=== PATIENT | female | born 1940 | race Caucasian/White ===

== ENCOUNTER 2017-08-13 09:37 | Outpatient (CLI) | payer MEDICARE, BC | END 2017-08-13 09:38 | disposition home or self-care (01) | LOC: BICMAMMO 09:37 | PROVIDERS: ATTEND Internal Medicine Hematology & Oncology | DX: Z13.820 Encounter for screening for osteoporosis (principal); M85.80 Other specified disorders of bone density and structure, unspecified site; Z85.42 Personal history of malignant neoplasm of other parts of uterus; Z85.3 Personal history of malignant neoplasm of breast | CPT/HCPCS: 77066; 77080; G0279 ==

== ENCOUNTER 2018-05-29 12:11 | Emergency (ER) | payer MEDICARE, BC ==
[2018-05-29] MEDS ORDERED: Ketorolac Tromethamine 30 MG/ML VIAL ONE (12:57)
--- NOTE | 2018-05-29 13:44 | RAD ---
LUMBAR SPINE 3 VIEWS: HISTORY: Low back pain. FINDINGS: There are 5 lumbar-type vertebrae. Pedicles are intact. Prominent right-zaldivar convex rotator scoliot ic curvature. Vertebral body heights are maintained. Minimal degenerative spondylolisthesis at the L4-5 level. Disk space narrowing at the L2-3 and L3-4 levels. Osteophytosis throughout the facets a nd vertebral bodies. IMPRESSION: Prominent degenerative changes lumbar spine. No evidence of compression fracture. POS: [facility]
== END 2018-05-29 13:25 | disposition home or self-care (01) ==
LOC: SCSER 12:11
DX: M54.16 Radiculopathy, lumbar region (principal); I10 Essential (primary) hypertension; E11.9 Type 2 diabetes mellitus without complications; E78.00 Pure hypercholesterolemia, unspecified; Z87.891 Personal history of nicotine dependence; Z79.899 Other long term (current) drug therapy; Z79.84 Long term (current) use of oral hypoglycemic drugs
CPT/HCPCS: 72100; 96372; J1885

== ENCOUNTER 2018-07-09 12:35 | Outpatient (CLI) | payer MEDICARE, BC ==
--- NOTE | 2018-07-09 15:33 | MRI ---
MRI LUMBAR SPINE WITHOUT CONTRAST: INDICATIONS: Lumbar radiculopathy. Lumbar disk degenerative disease. Low back pain. FINDINGS: There is generalized heterogeneity of the regional marrow. Scattered foci of signal alteration withi n the imaged lower thoracic and lumbar spine, most likely related to intraosseous hemangiomas. There is an incidental left renal cyst. Multilevel bilateral moderate facet osteoarthritis is present. The conus medullaris terminates at th e L1-L2 level. L5-S1: Effacement of the ventral thecal sac is due to a broad-based disk osteophyte complex. There is mild right neural foraminal stenosis due to disk osteophyte and facet hypertrophy. No significant left foraminal stenosis. There is osseous irregularity involving the right L5 pars, which may relat e to a pars defect, although difficult to reliably evaluate, given the degree of osseous irregularity from facet degeneration. Findings may be further assessed with CT as necessary. L4-L5: Grade 1 spondylolisthesis is present with moderate bilateral facet osteoarthritis. This resu lts in moderate left and mild right neural foraminal narrowing. There is moderate central canal sten osis with impingement of the bilateral traversing L5 nerve roots. L3-L4: Broad-based disk osteophyte, together with bilateral facet hypertrophy, results in moderate c entral canal stenosis, with potential for impinging deformity of the traversing left L4 nerve root. There is moderate left and mild right neural foraminal stenosis. L2-L3: Mild central canal stenosis is present due to broad-based disk osteophyte complex. Mild to m oderate bilateral neural foraminal stenosis is present. L1-L2: Mild to moderate central canal stenosis due to broad-based disk osteophyte and bilateral face t hypertrophy with redundancy of ligamentum flava. Moderate bilateral neural foraminal stenosis is p resent. T12-L1: This level reveals a right asymmetric disk osteophyte with mild effacement of the ventral th ecal sac and mild bilateral neural foraminal narrowing. IMPRESSION: Multilevel moderate degenerative changes throughout the lumbar spine. POS: [facility]
== END 2018-07-09 12:36 | disposition home or self-care (01) ==
LOC: TBSIIMAG 12:35
PROVIDERS: ATTEND Neurological Surgery
DX: M51.16 Intervertebral disc disorders with radiculopathy, lumbar region (principal); M47.26 Other spondylosis with radiculopathy, lumbar region
CPT/HCPCS: 72148

== ENCOUNTER 2018-08-16 10:16 | Outpatient (CLI) | payer MEDICARE, BC ==
--- NOTE | 2018-08-16 11:12 | MMO ---
Bilateral MAMMO Bilat Diag DDI+DARRYN. CLINICAL HISTORY: Patient is 78 years old and is seen for diagnostic exam. The patient has no family history of breast cancer. 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 The patient has a history of right Lumpectomy in June, - malignant and left Excisional Biopsy at age 27 - benign. VIEWS: The views performed were: bilateral mediolateral; bilateral craniocaudal with tomosynthesis; bilateral mediolateral oblique with tomosynthesis; right craniocaudal spot compression magnification; and right mediolateral spot compression magnification. FILMS COMPARED: The present examination has been compared to prior imaging studies performed at [facility] on 10/16/2014, 11/27/2015, 12/04/2015, 06/05/2016 and 08/13/2017. MAMMOGRAM FINDINGS: There are scattered fibroglandular densities. Finding 1: There are post operative changes seen in the right breast. Finding 2: There are new calcifications with grouped or clustered distribution seen in the right breast. These are slightly medial and inferior to the lumpectomy change and are possibly dystrophic. In the left breast, there are no suspicious masses, calcifications or areas of architectural distortion. IMPRESSION: FINDING 2: NEW CALCIFICATIONS IN THE RIGHT BREAST ARE PROBABLY BENIGN. FOLLOW-UP IN 6 MONTHS IS RECOMMENDED. THE RESULTS OF THIS EXAM WERE SENT TO THE PATIENT. ACR BI-RADS Category 3 - Probably benign finding - short interval follow-up suggested. [facility] will notify the patient of the need for additional imaging services. MAMMOGRAPHY NOTE: 1. A negative mammogram report should not delay a biopsy if a dominant of clinically suspicious mass is present. 2. Approximately 10% to 15% of breast cancers are not detected by mammography. 3. Adenosis and dense breasts may obscure an underlying neoplasm.
== END 2018-08-16 10:17 | disposition home or self-care (01) ==
LOC: BICMAMMO 10:16
PROVIDERS: ATTEND Internal Medicine Hematology & Oncology
DX: C50.111 Malignant neoplasm of central portion of right female breast (principal); R92.1 Mammographic calcification found on diagnostic imaging of breast; Z98.890 Other specified postprocedural states
CPT/HCPCS: 77066; G0279

== ENCOUNTER 2019-02-14 13:24 | Outpatient (CLI) | payer MEDICARE, BC ==
--- NOTE | 2019-02-14 14:40 | MMO ---
Right Breast MAMMO Unilat Diag DDI RT+DARRYN. CLINICAL HISTORY: Patient is 78 years old and is seen for diagnostic exam. The patient has no family history of breast cancer. The patient has a history of lumpectomy procedure revealed invasive ductal right breast carcinoma in July,; Stereotactic core biopsy procedure revealed invasive ductal right breast carcinoma in June, and uterine cancer in 1998. The patient has a history of right Lumpectomy in June, - malignant and left Excisional Biopsy at age 27 - benign. VIEWS: The views performed were: right craniocaudal with tomosynthesis; right mediolateral oblique with tomosynthesis; and right mediolateral with tomosynthesis. FILMS COMPARED: The present examination has been compared to prior imaging studies performed at [facility] on 12/04/2015, 06/05/2016, 08/13/2017 and 08/16/2018. This study has been interpreted with the assistance of computer-aided detection. MAMMOGRAM FINDINGS: There are scattered fibroglandular densities. There are post operative changes seen in the right breast. Calcifications have increased slightly in number, however the calcifications that have increased have a dystrophic appearance. The biopsy scar appears stable. IMPRESSION: POST OPERATIVE CHANGES IN THE RIGHT BREAST ARE PROBABLY BENIGN. FOLLOW-UP IN 6 MONTHS IS RECOMMENDED. THE RESULTS OF THIS EXAM WERE SENT TO THE PATIENT. ACR BI-RADS Category 3 - Probably benign finding - short interval follow-up suggested. [facility] will notify the patient of the need for additional imaging services. MAMMOGRAPHY NOTE: 1. A negative mammogram report should not delay a biopsy if a dominant of clinically suspicious mass is present. 2. Approximately 10% to 15% of breast cancers are not detected by mammography. 3. Adenosis and dense breasts may obscure an underlying neoplasm. Reported by: ELLY CESPEDES MD Electonically Signed: [id number]
== END 2019-02-14 13:25 | disposition home or self-care (01) ==
LOC: BICMAMMO 13:24
PROVIDERS: ATTEND Internal Medicine Hematology & Oncology
DX: R92.8 Other abnormal and inconclusive findings on diagnostic imaging of breast (principal); Z85.3 Personal history of malignant neoplasm of breast; Z98.890 Other specified postprocedural states
CPT/HCPCS: 77065; G0279

== ENCOUNTER 2019-08-18 13:34 | Outpatient (CLI) | payer MEDICARE, BC ==
--- NOTE | 2019-08-18 14:20 | MMO ---
Bilateral MAMMO Bilat Diag DDI+DARRYN. CLINICAL HISTORY: Patient is 79 years old and is seen for diagnostic exam. The patient has no family history of breast cancer. The patient has a history of lumpectomy procedure revealed invasive ductal right breast carcinoma in July,; Stereotactic core biopsy procedure revealed invasive ductal right breast carcinoma in June, and uterine cancer in 1998. The patient has a history of right Lumpectomy in June, - malignant and left Excisional Biopsy at age 27 - benign. VIEWS: The views performed were: bilateral craniocaudal with tomosynthesis; bilateral mediolateral oblique with tomosynthesis; and bilateral mediolateral with tomosynthesis. FILMS COMPARED: The present examination has been compared to prior imaging studies performed at [facility] [place] on 06/05/2016, 08/13/2017, 08/16/2018 and 02/14/2019. This study has been interpreted with the assistance of computer-aided detection. MAMMOGRAM FINDINGS: There are scattered fibroglandular densities. There are benign appearing calcifications in the right breast. There are stable post-operative changes. There are no suspicious masses, suspicious calcifications, or new areas of architectural distortion. IMPRESSION: THERE IS NO MAMMOGRAPHIC EVIDENCE OF MALIGNANCY. A ROUTINE FOLLOW-UP MAMMOGRAM IN 1 YEAR IS RECOMMENDED. THE RESULTS OF THIS EXAM WERE SENT TO THE PATIENT. ACR BI-RADS Category 2 - Benign finding MAMMOGRAPHY NOTE: 1. A negative mammogram report should not delay a biopsy if a dominant of clinically suspicious mass is present. 2. Approximately 10% to 15% of breast cancers are not detected by mammography. 3. Adenosis and dense breasts may obscure an underlying neoplasm. Reported by: Shakir NAJERA Electonically Signed: [id number]
== END 2019-08-18 13:35 | disposition home or self-care (01) ==
LOC: BICMAMMO 13:34
PROVIDERS: ATTEND Internal Medicine Hematology & Oncology
DX: C50.111 Malignant neoplasm of central portion of right female breast (principal)
CPT/HCPCS: 77066; G0279

== ENCOUNTER 2019-08-31 13:33 | Outpatient (CLI) | payer MEDICARE, BC ==
--- NOTE | 2019-08-31 14:36 | MRI ---
EXAM: MRI right knee PROVIDED CLINICAL HISTORY: Pain COMPARISON: None FINDINGS: The anterior cruciate ligament, posterior cruciate ligament, medial collateral ligament and lateral c ollateral ligamentous complex demonstrate an intact MR appearance, as does the extensor mechanism. There is complex tearing involving the body of the medial meniscus with displacement of a meniscal fl ap within the medial meniscus femoral recess. The lateral meniscus is mildly discoid without evidence for tear. There is full-thickness articular cartilage loss involving portions of the medial femorotibial joint with somewhat focal subjacent marrow edema involving the medial aspect of the medial femoral condyle, presumably reactive. There is extensive cartilage absence involving the median ridge and lat eral facet of the patella. Osteophyte formation is seen about the knee. There is a small knee joint effusion. There are multiple intra-articular bodies present, largest at t he posterior medial aspect of the knee measuring about 7 mm. Regional marrow and muscular signal appear otherwise unremarkable. IMPRESSION: 1. Complex displaced flap tear involving the body of the medial meniscus. 2. 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 3. Discoid lateral meniscus without evidence for meniscal tear. 4. Multiple intra-articular bodies.
== END 2019-08-31 13:34 | disposition home or self-care (01) ==
LOC: TBSIIMAG 13:33
PROVIDERS: ATTEND Specialist
DX: S83.231A Complex tear of medial meniscus, current injury, right knee, initial encounter (principal); M25.561 Pain in right knee; M24.10 Other articular cartilage disorders, unspecified site; M23.300 Other meniscus derangements, unspecified lateral meniscus, right knee

== ENCOUNTER 2020-05-07 10:17 | Outpatient (CLI) | payer MEDICARE, BC ==
--- NOTE | 2020-05-07 10:52 | RAD ---
EXAM: XR Lumbar Spine Bending Min 4V PROVIDED CLINICAL HISTORY: Spondylolisthesis and low back pain. COMPARISON: 05/29/2018 FINDINGS: 5 nonrib-bearing lumbar-type vertebral bodies are again seen. There is right convex rotoscoliosis of the lumbar spine. Multilevel degenerative changes are seen with narrowing of the intervertebral disc spaces at all levels with scattered osteophytes seen in the in the lower thoracic and lumbar spi ne. Again noted is minimal anterolisthesis of L4 on L5 with questionable trace anterolisthesis of L5 on S1. Prominent facet hypertrophic changes are seen in the lumbar spine and greatest in the lower lumbar spine. No additional level of subluxation is appreciated. The vertebral body heights are within normal limits, and no fracture is identified. The degree of anterolisthesis at the L4-5 level does appear to improve on flexion compared to extension. IMPRESSION: 1. Multilevel degenerative changes with minimal grade 1 anterolisthesis of L4 on L5 with slight impro vement in the degree of anterolisthesis on flexion compared to extension. 2. Question of trace anterolisthesis of L5 on S1, but this level is partially obscured due to overlyi ng iliac bones.
--- NOTE | 2020-05-07 11:35 | MRI ---
MR the lumbar spine without contrast: 05/07/2020 History: Low back pain, popping on right sacroiliac joint when walking for one year COMPARISON: 07/09/2018 TECHNIQUE: Multiplanar multisequence MR images were obtained of lumbar spine without IV contrast FINDINGS: On the basis of 5 lumbar type vertebral bodies, conus medullaris terminates at theL1-2 level. Sagittal STIR imaging demonstrates no focal area of osseous marrow edema. T12-L1:There is disc space narrowing with disc desiccation and disc bulge. Mild bilateral facet hyper trophy noted. Vacuum disc formation noted. Moderate right and mild left neural foraminal stenosis. Mild central canal stenosis. L1-2:There is disc space narrowing with disc desiccation, posterior degenerative endplate change, vac uum disc formation, and anterior osteophyte formation. There is a disc osteophyte complex and there is bilateral facet hypertrophy. There is stable mild central canal stenosis and mild bilateral neural foraminal stenosis. L2-3:There is disc space narrowing and disc desiccation with a disc osteophyte complex. Bilateral fac et hypertrophy noted with vacuum disc formation. Mild right and moderate left neural foraminal stenosis. No significant central canal stenosis. L3-4:There is disc space narrowing with disc desiccation and mild disc bulge. There is prominent bila teral facet hypertrophy, left greater than right. There is mild central canal stenosis with moderate left lateral recess stenosis, not significantly changed. There is mild right neural foramina l stenosis and moderate/severe left neural foraminal stenosis, similar when compared to prior imaging. L4-5:Prominent bilateral facet hypertrophy and hypertrophy of the ligamentum flavum. There is disc sp kathy narrowing with disc desiccation and vacuum disc formation. Mild right and moderate left neural foraminal stenosis, stable. Stable moderate central canal stenosis/left lateral recess stenosis. L5-S1:Prominent bilateral facet hypertrophy. Vacuum disc formation. Moderate stable right neural fora rebecca stenosis. No significant central canal or left neural foraminal stenosis. There is a stable small cyst in the midpole of the left kidney. Imaged retroperitoneal structures dem onstrate no acute findings. 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 IMPRESSION: Multilevel degenerative change within the lumbar spine as described above.
== END 2020-05-07 10:18 | disposition home or self-care (01) ==
LOC: TBSIIMAG 10:17
PROVIDERS: ATTEND Neurological Surgery
DX: M43.16 Spondylolisthesis, lumbar region (principal); M54.5 Low back pain; M47.816 Spondylosis without myelopathy or radiculopathy, lumbar region
CPT/HCPCS: 72120; 72148

== ENCOUNTER 2020-08-20 13:42 | Outpatient (CLI) | payer MEDICARE, BC | END 2020-08-20 13:43 | disposition home or self-care (01) | LOC: BICMAMMO 13:42 | PROVIDERS: ATTEND Internal Medicine Hematology & Oncology | DX: Z08 Encounter for follow-up examination after completed treatment for malignant neoplasm (principal); Z85.3 Personal history of malignant neoplasm of breast | CPT/HCPCS: 77066; G0279 ==

== ENCOUNTER 2021-08-21 12:56 | Outpatient (CLI) | payer MEDICARE, BC | END 2021-08-21 12:57 | disposition home or self-care (01) | LOC: BICMAMMO 12:56 | PROVIDERS: ATTEND Internal Medicine Hematology & Oncology | DX: C50.919 Malignant neoplasm of unspecified site of unspecified female breast (principal) | CPT/HCPCS: 77066; G0279 ==

== ENCOUNTER 2022-06-23 14:28 | Outpatient (CLI) | payer MEDICARE, BC | END 2022-06-23 14:29 | disposition home or self-care (01) | LOC: BICMAMMO 14:28 | PROVIDERS: ATTEND Internal Medicine | DX: M85.851 Other specified disorders of bone density and structure, right thigh (principal); M85.852 Other specified disorders of bone density and structure, left thigh | CPT/HCPCS: 77080 ==

== ENCOUNTER 2023-08-31 14:36 | Outpatient (CLI) | payer MEDICARE | END 2023-08-31 14:37 | disposition home or self-care (01) | LOC: BICMAMMO 14:36 | PROVIDERS: ATTEND Surgery | DX: Z12.31 Encounter for screening mammogram for malignant neoplasm of breast (principal); Z80.3 Family history of malignant neoplasm of breast; Z85.3 Personal history of malignant neoplasm of breast; Z91.89 Other specified personal risk factors, not elsewhere classified; Z98.890 Other specified postprocedural states | CPT/HCPCS: 77063; 77067 ==